=== PATIENT | male | born 1970 ===

== ENCOUNTER 2017-08-18 12:25 | Emergency (ER) | payer BC ==
[2017-08-18] MEDS ORDERED: Lidocaine 1% 30 ML SDV INJECT ONE (12:45)
[2017-08-18] MEDS ORDERED: Bacitracin Oint 1 GM U/D Packet TOP ONE (12:45)
--- NOTE | 2017-08-18 13:41 | EDM.PDOC ---
Scribed by Ene Culver 08/18/17 9215 for Migue Garcias MD ED HPI GENERAL MEDICAL PROBLEM - General Chief Complaint: Laceration Stated Complaint: LACERATION/[phone] Time Seen by Provider: 08/18/17 12:45 Source of Information: Reports: Patient, RN, RN Notes Reviewed History Limitations: Reports: No Limitations - History of Present Illness INITIAL COMMENTS - FREE TEXT/NARRATIVE: Patient presents to ER with complaint of injury to the left hand sustained prior to arrival when his hand was caught with winch cord resulting in a laceration to the radial side of the lateral hand just proximal to the second MCPJ. Tetanus vaccine is current. Denies any other injury. Onset: Today Location: Reports: Upper Extremity, Left Severity: Moderate Improves with: Reports: None Worsens with: Reports: None Associated Symptoms: Reports: No Other Symptoms Left Hand Pain Score (Numeric/FACES): 7 - Related Data Allergies Allergy/AdvReac Type Severity Reaction Status Date / Time yellow dye Allergy Hives Verified 08/18/17 12:43 Home Meds: Home Meds Nitroglycerin [Nitrostat] 0.4 mg SL ASDIRECTED PRN 01/13/14 [History] Pregabalin [Lyrica] 150 mg PO DAILY 08/18/17 [History] Social & Family History - Family History Family Medical History: Noncontributory ED ROS GENERAL - Review of Systems Review Of Systems: ROS reveals no pertinent complaints other than HPI. ED EXAM, SKIN/RASH Exam: See Below Exam Limited By: No Limitations General Appearance: Alert, WD/WN, No Apparent Distress Head: Atraumatic, Normocephalic Respiratory/Chest: No Respiratory Distress Peripheral Pulses: 3+: Radial (L), Radial (R) Extremities: Normal Range of Motion, Normal Capillary Refill, Joint Swelling ( left hand swelling radial side and in the area of the second MCPJ.), Other ( 2.5cm irregular laceration to depth of subcutaneous tissue overlying the left metacarpal phalangeal joint. No tendon injury. No active bleeding. No foreign body. ) Neurological: Alert, Oriented, No Motor/Sensory Deficits Psychiatric: Normal Mood ED SKIN PROCEDURES - Laceration/Wound Repair Left Lateral Hand Lac/Wound length In cm: 2.5 Appearance: Subcutaneous, Irregular, Clean Distal NVT: Neuro & Vascular Intact, No Tendon Injury Anesthetic Type: Local Local Anesthesia - Lidocaine (Xylocaine): 1% Plain Local Anesthetic Volume: Other (15cc) Skin Prep: Chlorhexidine (Hibiciens), Saline, Sterile Drape Saline Irrigation (cc's): 1,000 Exploration/Debridement/Repair: Wound Explored, In a Bloodless Field, Explored to Base, Minimal Debridement, Minimally Undermined, No Foreign Material Found Closed with: Sutures Suture Size: 3-0 # of Sutures: 13 Suture Type: Nylon, Running Drain Placement: No Sterile Dressing Applied: Nurse Tetanus Status Addressed: Yes Complications: No - Splinting Left 2nd Digit Splint Site: left hand/2nd finger Pre-Procedure NV Status: Normal Post-Procedure NV Status: Normal Splint Material: Aluminum-Foam Splint Design: Volar Applied & Form Fitted By: Nurse Provider Post-Splint Application NV Check: NV Status Normal, Good Position Complications: No Course - Vital Signs Last Recorded V/S: Last Vital Signs Temp 36.4 C 08/18/17 12:30 Pulse 73 08/18/17 12:30 Resp 16 08/18/17 12:30 BP 117/84 08/18/17 12:30 Pulse Ox 96 08/18/17 12:30 - Orders/Labs/Meds Orders: Active Orders 24 hr Category Date Time Status Hand Comp Min 3V Lt [CR] Urgent Exams 08/18/17 12:42 Taken Meds: Medications Discontinued Medications Generic Name Dose Route Start Last Admin Trade Name Freq PRN Reason Stop Dose Admin Bacitracin 1 dose 08/18/17 12:45 08/18/17 13:02 Bacitracin Oint 1 Gm TOP 08/18/17 12:46 1 dose ONETIME ONE Administration Lidocaine HCl 30 ml 08/18/17 12:45 08/18/17 13:02 Xylocaine-Mpf 1% INJECT 08/18/17 12:46 30 ml ONETIME ONE Administration - Radiology Interpretation Free Text/Narrative:: Left hand x-ray: No fractures. See rad report. Departure - Departure Time of Disposition: 13:50 Disposition: Home, Self-Care 01 Condition: Good Clinical Impression: Laceration of left hand Qualifiers: Encounter type: initial encounter Foreign body presence: without foreign body Qualified Code(s): S61.412A - Laceration without foreign body of left hand, initial encounter Crushing injury of left hand Qualifiers: Encounter type: initial encounter Qualified Code(s): S67.22XA - Crushing injury of left hand, initial encounter - Discharge Information Instructions: Laceration Care, Adult Forms: ED Department Discharge Additional Instructions: Rx: Cephalexin 500mg Follow up in clinic for suture removal in 7 to 10 days. - My Orders Last 24 Hours: My Active Orders 08/18/17 12:42 Hand Comp Min 3V Lt [CR] Urgent - Assessment/Plan Last 24 Hours: My Active Orders 08/18/17 12:42 Hand Comp Min 3V Lt [CR] Urgent I have read and agree with the documentation that has been completed regarding this visit. By signing this record, I attest that the documentation was completed in my physical presence and is an accurate record of the encounter.
--- NOTE | 2017-08-18 13:44 | CR ---
Clinical history: 47-year-old male injured left hand (caught and "crush" in winch cable). Interpretation: 3 views left hand (index finger splint, foreign body) reveal... *no sign of fracture/ dislocation left hand or wrist. Benign cyst with sclerotic margins head of the third metacarpal noted incidentally.
== END 2017-08-18 13:40 | disposition home or self-care (01) ==
LOC: DL.ED 12:25
DX: S67.22XA Crushing injury of left hand, initial encounter (principal); S61.412A Laceration without foreign body of left hand, initial encounter; Z91.048 Other nonmedicinal substance allergy status; W23.1XXA Caught, crushed, jammed, or pinched between stationary objects, initial encounter
CPT/HCPCS: 12001; 73130-LT; 99283